=== PATIENT | female | born 1970 | race Caucasian/White ===

== ENCOUNTER 2017-06-05 00:28 | Emergency (ER) | payer BC ==
[~2017-06-05] VITALS: Ht 165.1 cm; Wt 57.6 kg
[2017-06-05] MEDS ORDERED: VITAMINS (00:38)
[2017-06-05 00:40] VITALS: BP 131/73
[2017-06-05] MEDS ORDERED: Methocarbamol 750mg tab ORAL ONE (01:00)
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
[2017-06-05] MEDS ORDERED: IBUPROFEN600 MG ORAL (02:23)
[2017-06-05] MEDS ORDERED: ROBAXIN-750750 MG PO (02:24)
[2017-06-05 02:34] VITALS: BP 131/73
--- NOTE | 2017-06-05 14:14 | Diagnostic Imaging Report ---
Indication: Pain Technique: XRAY Chest 1v Comparison: None Findings: Heart size and mediastinal contours are within normal limits given technique. There is no focal consolidation, pneumothorax or pleural effusion. Osseous structures demonstrate no acute abnormality. Impression: No radiographic evidence of acute cardiopulmonary disease.
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
== END 2017-06-05 02:35 | disposition home or self-care (01) ==
LOC: EMR 00:53
DX: S13.9XXA Sprain of joints and ligaments of unspecified parts of neck, initial encounter (principal); V43.52XA Car driver injured in collision with other type car in traffic accident, initial encounter; Y92.410 Unspecified street and highway as the place of occurrence of the external cause
CPT/HCPCS: 71045; 72052; 99284